=== PATIENT | male | born 1990 | race Caucasian/White ===

== ENCOUNTER 2016-05-12 08:53 | Emergency (ER) | payer OTHER ==
[2016-05-12 10:43] LABS: HEMOGLOBIN 13.5 gm/dl (14.0-17.5); RED BLOOD COUNT 4.62 M/UL (4.20-5.50); WHITE BLOOD COUNT 4.3 K/UL (4.5-11.0)
[2016-05-12 11:01] LABS: BUN/CREATININE RATIO 14 (0-10)
== END 2016-05-12 16:10 | disposition home or self-care (01) ==
LOC: ER1 08:53
PROVIDERS: Emergency Medicine
DX: J10.1 Influenza due to other identified influenza virus with other respiratory manifestations (principal); J20.9 Acute bronchitis, unspecified; F17.290 Nicotine dependence, other tobacco product, uncomplicated; Z88.6 Allergy status to analgesic agent
CPT/HCPCS: 36415; 71020; 80053; 81001; 82550; 82553; 83690; 83874; 84484; 85025; 93005; 94664; 99284; J7050; Q9963

== ENCOUNTER 2020-03-24 06:19 | Emergency (ER) | payer OTHER ==
[~2020-03-24 06:19] MED LIST: AMOXICILLIN500 M1 PO; ONDANSETRON ODT4 MG SL; ZOFRAN4 MG PO
[2020-03-24 06:40] LABS: HEMOGLOBIN 13.6 gm/dl (14.0-17.5); RED BLOOD COUNT 4.64 M/UL (4.20-5.50); WHITE BLOOD COUNT 7.8 K/UL (4.5-11.0)
[2020-03-24 07:00] LABS: BUN/CREATININE RATIO 21 (0-10)
[2020-06-03] MEDS ORDERED: PROTONIX40 MG PO (16:28)
[2020-06-03] MEDS ORDERED: FLUTICASONE SPRAY (16:29)
[2020-06-03] MEDS ORDERED: IMITREX50 MG PO (16:30)
[2020-06-03] MEDS ORDERED: TOPAMAX25 MG PO (16:30)
[2020-06-03] MEDS ORDERED: ZOFRAN 4 MG TAB4 MG PO (16:31)
[2020-06-03] MEDS ORDERED: VENTOLIN HFA 66.7 GM INH (16:31)
[2020-06-03] MEDS ORDERED: CLARITIN10 MG PO (16:32)
[2020-06-08] MEDS ORDERED: HYDROCODON-ACE1 EAC2 PO (12:51)
[2020-06-08] MEDS ORDERED: COLACE100 MG PO (12:51)
== END 2020-03-24 10:00 | disposition home or self-care (01) ==
LOC: ER1 06:19
PROVIDERS: Emergency Medicine
DX: K76.0 Fatty (change of) liver, not elsewhere classified (principal); R11.10 Vomiting, unspecified; Z88.6 Allergy status to analgesic agent; Z20.822 Contact with and (suspected) exposure to COVID-19
CPT/HCPCS: 36415; 80053; 82550; 82553; 83690; 83874; 84484; 85025; 93005; 96374; 96375; 99284; J2405; Q9967; U0002

== ENCOUNTER → 2020-05-16 | Outpatient (CLI) | payer OTHER ==
[~2020-05-16] MED LIST changes: +CLARITIN10 MG PO; +COLACE100 MG PO; +FLUTICASONE SPRAY; +HYDROCODON-ACE1 EAC2 PO; +IMITREX50 MG PO; +PROTONIX40 MG PO; +TOPAMAX25 MG PO; +VENTOLIN HFA 66.7 GM INH; +ZOFRAN 4 MG TAB4 MG PO; +ZOFRAN ODT 4 MG4 MG GT
== END ==
LOC: NM 08:40
DX: R10.11 Right upper quadrant pain (principal); R93.2 Abnormal findings on diagnostic imaging of liver and biliary tract
CPT/HCPCS: 78227; A9537; J2805

== ENCOUNTER 2020-06-04 21:02 | Emergency (ER) | payer OTHER ==
[~2020-06-04 21:02] MED LIST changes: -COLACE100 MG PO; -HYDROCODON-ACE1 EAC2 PO; -ZOFRAN ODT 4 MG4 MG GT
[2020-06-08] MEDS ORDERED: HYDROCODON-ACE1 EAC2 PO (12:51)
[2020-06-08] MEDS ORDERED: COLACE100 MG PO (12:51)
== END 2020-06-04 23:45 | disposition home or self-care (01) ==
LOC: ER1 21:02
DX: R43.8 Other disturbances of smell and taste (principal); Z20.822 Contact with and (suspected) exposure to COVID-19; F17.290 Nicotine dependence, other tobacco product, uncomplicated
CPT/HCPCS: 99283; U0002

== ENCOUNTER → 2020-06-08 | Day surgery (SDC) | payer OTHER ==
[~2020-06-08] MED LIST changes: +COLACE100 MG PO; +HYDROCODON-ACE1 EAC2 PO; +ZOFRAN ODT 4 MG4 MG GT
== END | disposition home or self-care (01) ==
LOC: OR 08:10
DX: K81.1 Chronic cholecystitis (principal); K82.8 Other specified diseases of gallbladder; J45.909 Unspecified asthma, uncomplicated; F31.9 Bipolar disorder, unspecified; K21.9 Gastro-esophageal reflux disease without esophagitis; E78.2 Mixed hyperlipidemia; G43.909 Migraine, unspecified, not intractable, without status migrainosus; F17.290 Nicotine dependence, other tobacco product, uncomplicated; E66.01 Morbid (severe) obesity due to excess calories; Z68.37 Body mass index [BMI] 37.0-37.9, adult; Z79.899 Other long term (current) drug therapy
CPT/HCPCS: 94664; J0690; J1100; J2250; J2405; J2704; J2710; J3010; J7030; J7120

== ENCOUNTER 2020-06-15 03:33 | Emergency (ER) | payer OTHER ==
[~2020-06-15 03:33] MED LIST changes: -ZOFRAN ODT 4 MG4 MG GT
== END 2020-06-15 07:05 | disposition home or self-care (01) ==
LOC: ER1 03:33
DX: J02.8 Acute pharyngitis due to other specified organisms (principal); J45.909 Unspecified asthma, uncomplicated; Z20.822 Contact with and (suspected) exposure to COVID-19; G43.909 Migraine, unspecified, not intractable, without status migrainosus
CPT/HCPCS: 0240U; 71045; 87081; 87880; 99283

== ENCOUNTER 2020-07-13 04:37 | Emergency (ER) | payer OTHER | END 2020-07-13 06:42 | disposition home or self-care (01) | LOC: ER1 04:37 | DX: M25.511 Pain in right shoulder (principal); Z90.49 Acquired absence of other specified parts of digestive tract | CPT/HCPCS: 73030; 99283 ==

== ENCOUNTER 2020-08-30 02:22 | Emergency (ER) | payer OTHER ==
[2020-08-30 02:50] LABS: HEMOGLOBIN 14.2 gm/dl (14.0-17.5); RED BLOOD COUNT 4.71 M/UL (4.20-5.50); WHITE BLOOD COUNT 12.1 K/UL (4.5-11.0)
[2020-08-30 03:17] LABS: BUN/CREATININE RATIO 17 (0-10)
[2020-08-30] MEDS ORDERED: ZOFRAN ODT 4 MG4 MG GT (04:04)
== END 2020-08-30 04:17 | disposition home or self-care (01) ==
LOC: ER1 02:22
PROVIDERS: Family Medicine
DX: R10.9 Unspecified abdominal pain (principal); R19.7 Diarrhea, unspecified; Z90.49 Acquired absence of other specified parts of digestive tract
CPT/HCPCS: 80053; 81001; 83690; 85025; 96374; 96375; 99284; J1885; J2405

== ENCOUNTER 2020-11-22 06:02 | Emergency (ER) | payer OTHER ==
[~2020-11-22 06:02] MED LIST changes: +ZOFRAN ODT 4 MG4 MG GT
[2020-11-22] MEDS ORDERED: ONDANSETRON ODT4 MG SL (06:35)
== END 2020-11-22 06:57 | disposition home or self-care (01) ==
LOC: ER1 06:02
DX: R11.2 Nausea with vomiting, unspecified (principal); K21.9 Gastro-esophageal reflux disease without esophagitis; Z90.49 Acquired absence of other specified parts of digestive tract
CPT/HCPCS: 99283

== ENCOUNTER 2021-02-17 09:11 | Emergency (ER) | payer OTHER ==
[2021-02-17] MEDS ORDERED: IBUPROFEN600 MG PO (12:48)
== END 2021-02-17 12:50 | disposition home or self-care (01) ==
LOC: ER1 09:11
DX: S62.634A Displaced fracture of distal phalanx of right ring finger, initial encounter for closed fracture (principal); F17.220 Nicotine dependence, chewing tobacco, uncomplicated; W01.0XXA Fall on same level from slipping, tripping and stumbling without subsequent striking against object, initial encounter; Y92.009 Unspecified place in unspecified non-institutional (private) residence as the place of occurrence of the external cause
CPT/HCPCS: 29130; 73130; 99283

== ENCOUNTER → 2021-05-04 | Outpatient (CLI) | payer OTHER ==
[~2021-05-04] MED LIST changes: +IBUPROFEN600 MG PO
== END ==
LOC: US 16:00
DX: M79.604 Pain in right leg (principal)
CPT/HCPCS: 93971

== ENCOUNTER 2021-06-28 09:38 | Emergency (ER) | payer OTHER ==
[2021-06-28 11:00] LABS: HEMOGLOBIN 15.2 gm/dl (14.0-17.5); RED BLOOD COUNT 5.05 M/UL (4.20-5.50); WHITE BLOOD COUNT 9.7 K/UL (4.5-11.0)
[2021-06-28 11:22] LABS: BUN/CREATININE RATIO 23 (0-10)
[2021-06-28] MEDS ORDERED: ZOFRAN 4 MG TAB4 MG PO (12:59)
== END 2021-06-28 13:00 | disposition home or self-care (01) ==
LOC: ER1 09:38
PROVIDERS: Physician Assistant Medical
DX: R11.2 Nausea with vomiting, unspecified (principal); I10 Essential (primary) hypertension; K21.9 Gastro-esophageal reflux disease without esophagitis; Z90.49 Acquired absence of other specified parts of digestive tract
CPT/HCPCS: 80053; 81001; 83690; 85025; 96374; 99284; J2405

== ENCOUNTER 2021-10-15 11:26 | Emergency (ER) | payer OTHER | END 2021-10-15 15:15 | disposition left against medical advice (07) | LOC: ER1 11:26 | DX: Z53.21 Procedure and treatment not carried out due to patient leaving prior to being seen by health care provider (principal) ==